=== PATIENT | male | born 1945 | race Caucasian/White ===

== ENCOUNTER 2016-12-31 16:01 | Emergency (ER) | payer MEDICARE ==
--- NOTE | 2016-12-31 16:27 | ER Document Report ---
ED Substance Abuse / Acc. OD - General Chief Complaint: ETOH Abuse Stated Complaint: POSSIBLE INTOXICATION Time Seen by Provider: 12/31/16 16:26 Notes: The patient is a 71-year-old male, past medical history diabetes, presents by EMS after he was drinking 7 rums and Cokes with 4 shots of rum in each of them. He was sitting on the side of the road and a bystander called 911. EMS arrived and his family was there, but he did not want to go home with his family and wanted to go the hospital. Initially, the patient was combative at by EMS, but he has calmed down. He said he did not hit his head denies any pain or other complaints at this time. TRAVEL OUTSIDE OF THE [place] IN LAST 30 DAYS: No - Related Data Allergies/Adverse Reactions: No Known Allergies Allergy (Verified 06/14/14 05:13) Past Medical History - General Information source: Patient - Social History Smoking Status: Current Every Day Smoker Frequency of alcohol use: binge Drug Abuse: None Family History: Reviewed & Not Pertinent - Past Medical History Cardiac Medical History: Reports: Hx Hypertension Pulmonary Medical History: Reports: Hx COPD Endocrine Medical History: Reports: Hx Diabetes Mellitus Type 2 - Patient reports rum and diet Coke is how he treats his diabetes Past Surgical History: Reports: Hx Abdominal Surgery, Hx Appendectomy, Hx Cardiac Catheterization - stents x2, Hx Cholecystectomy - Immunizations Hx Diphtheria, Pertussis, Tetanus Vaccination: Yes Review of Systems - Review of Systems Notes: REVIEW OF SYSTEMS: CONSTITUTIONAL: -fevers, -chills EENT: -eye pain, -difficulty swallowing, -nasal congestion CARDIOVASCULAR:-chest pain, -syncope. RESPIRATORY: -cough, -SOB GASTROINTESTINAL: -abdominal pain, -nausea, -vomiting, -diarrhea GENITOURINARY: -dysuria, -hematuria MUSCULOSKELETAL: -back pain, -neck pain SKIN: -rash or skin lesions. HEMATOLOGIC: -easy bruising or bleeding. LYMPHATIC: -swollen, enlarged glands. NEUROLOGICAL: -altered mental status or loss of consciousness, -headache, - neurologic symptoms PSYCHIATRIC: +heavy alcohol use, -anxiety, -depression. ALL OTHER SYSTEMS REVIEWED AND NEGATIVE. Physical Exam - Vital signs Vitals: Temp Pulse Resp BP 98.7 F 71 18 130/78 H 12/31/16 16:06 12/31/16 16:06 12/31/16 16:06 12/31/16 16:06 - Notes Notes: PHYSICAL EXAMINATION: GENERAL: Well-appearing, well-nourished and in no acute distress. Smells of ETOH. HEAD: Atraumatic, normocephalic. EYES: Pupils equal round and reactive to light, extraocular movements intact, sclera anicteric, conjunctiva are normal. ENT: nares patent, oropharynx clear without exudates. Moist mucous membranes. NECK: Normal range of motion, supple without lymphadenopathy LUNGS: Breath sounds clear to auscultation bilaterally and equal. No wheezes rales or rhonchi. HEART: Regular rate and rhythm without murmurs ABDOMEN: Soft, nontender, normoactive bowel sounds. No guarding, no rebound. No masses appreciated. EXTREMITIES: Normal range of motion, no pitting or edema. No cyanosis. NEUROLOGICAL: Cranial nerves grossly intact. Normal speech, normal gait. Normal sensory, motor, and reflex exams. PSYCH: Normal mood, normal affect. SKIN: Warm, Dry, normal turgor, no rashes or lesions noted. Course - Re-evaluation Re-evalutation: Patient is ambulating around the emergency room steadily. His friend is in the emergency room who is sober and will take patient home. No signs of head injuries and the patient said that he only drank alcohol and does not have any complaints. Will discharge home with follow-up at primary care physician. Offered patient alcohol detox, but he defers at this time. - Vital Signs Vital signs: Temp Pulse Resp BP Pulse Ox 97.2 F 63 16 133/71 H 95 12/31/16 18:24 12/31/16 18:24 12/31/16 18:24 12/31/16 18:24 12/31/16 18:24 Discharge - Discharge Clinical Impression: Alcohol intoxication Qualifiers: Complication of substance-induced condition: uncomplicated Qualified Code(s): F10.920 - Alcohol use, unspecified with intoxication, uncomplicated Condition: Stable Disposition: HOME, SELF-CARE Additional Instructions: ACUTE ALCOHOL INTOXICATION and ALCOHOL ABUSE: Your evaluation revealed very high levels of alcohol. You can from drinking a large amount of alcohol rapidly! Further, there's the risk of falls , traffic accidents, and fights. A high portion (about 50 percent) of the serious injuries seen in hospital emergency rooms are caused by alcohol. Alcohol overdosage is usually due to an underlying emotional or psychiatric problem. You may benefit from counselling. If "binge" drinking is an ongoing problem for you, or if you drink ANY AMOUNT of alcohol EVERY day, you most likely have a tendency to alcoholism. You should avoid alcohol totally. We can refer you for treatment. Persons with alcohol problems are often also prone to other addictions -- you should discuss any use of medications or drugs with the doctor. You should be watched at home for the next several hours by someone who has not been drinking. Get extra fluids for the next 24 hours. Call the doctor if there is repeated vomiting, increasing headache, decreasing level of alertness, or any other worsening. CHRONIC ALCOHOLISM and ALCOHOL ABUSE: Your evaluation reveals evidence of chronic alcoholism, an addiction to alcohol. The tendency to alcoholism may be inherited. Chronic use of alcohol weakens muscles, causes fatty deposits in the liver , damages the stomach, makes you more prone to infections, and can cause defects in unborn children. In the long run, brain atrophy and cirrhosis of the liver result. You are also at greater risk for certain types of cancer, such as cancer of the mouth, throat, stomach, and liver. Counselling services are available to help you. In-hospital treatment programs often help. Support groups such as Alcoholics Anonymous can be very useful in beating this addiction. Your physician can make a referral for you. As alcoholics often are prone to other addictions, you should discuss your use of any other medications with the doctor. FOR THE OBSERVER: Observe the patient for the next 24 hours and call or go to the hospital if any of the following are noted: prolonged or repeated vomiting, difficulty in arousing, convulsions (seizures or fits), fever, persistent cough, breathing that is too slow or too rapid, or confused or bizarre behavior. If a counselling visit has been arranged, make sure the patient attends. Call the physician or poison control if you have questions. FOLLOW-UP CARE: If you have been referred to a physician for follow-up care, call the physician s office for an appointment as you were instructed or within the next two days. If you experience worsening or a significant change in your symptoms, notify the physician immediately or return to the Emergency Department at any time for re-evaluation.
[2016-12-31 18:28] VITALS: BP 133/71
== END 2016-12-31 18:28 | disposition home or self-care (01) ==
LOC: ER 16:01
DX: F10.920 Alcohol use, unspecified with intoxication, uncomplicated (principal); E11.9 Type 2 diabetes mellitus without complications; J44.9 Chronic obstructive pulmonary disease, unspecified; F17.200 Nicotine dependence, unspecified, uncomplicated; Z98.61 Coronary angioplasty status
CPT/HCPCS: 99284

== ENCOUNTER 2017-10-06 21:41 | Emergency (ER) | payer MEDICARE ==
--- NOTE | 2017-10-06 22:20 | ER Document Report ---
ED General - General Chief Complaint: Fall Stated Complaint: FALL,ALTERED MENTAL STATUS Time Seen by Provider: 10/06/17 22:13 Notes: Patient is a 72-year-old known alcoholic is brought in by ambulance because of alcohol intoxication with fall. He obviously this had as he has a lot of abrasions and swelling to left side of his head. He also has some abrasions to the left hand. Patient denies any pain. He denies falling that he obviously did. He is currently intoxicated. Per speaking with the nurse stay a month said that the family said they were given a command however family is not yet arrived. History is therefore limited with the patient. He does admit that he drinks alcohol every day. TRAVEL OUTSIDE OF THE [place] IN LAST 30 DAYS: No - Related Data Allergies/Adverse Reactions: No Known Allergies Allergy (Verified 06/14/14 05:13) Past Medical History - Social History Smoking Status: Former Smoker Chew tobacco use (# tins/day): No Frequency of alcohol use: Heavy Drug Abuse: None Family History: Reviewed & Not Pertinent Patient has suicidal ideation: No Patient has homicidal ideation: No - Past Medical History Cardiac Medical History: Reports: Hx Hypertension Pulmonary Medical History: Reports: Hx COPD Endocrine Medical History: Reports: Hx Diabetes Mellitus Type 2 - Patient reports rum and diet Coke is how he treats his diabetes Renal/ Medical History: Denies: Hx Peritoneal Dialysis Past Surgical History: Reports: Hx Abdominal Surgery, Hx Appendectomy, Hx Cardiac Catheterization - stents x2, Hx Cholecystectomy - Immunizations Hx Diphtheria, Pertussis, Tetanus Vaccination: Yes Review of Systems - Review of Systems Notes: My Normal Review Basic REVIEW OF SYSTEMS: CONSTITUTIONAL : Denies fever, chills, or sweats. Denies recent illness. EENT: Denies eye, ear, throat, or mouth pain or symptoms. Denies nasal or sinus congestion. CARDIOVASCULAR: Denies chest pain. RESPIRATORY: Denies cough, cold, or chest congestion. Denies shortness of breath, difficulty breathing, or wheezing. GASTROINTESTINAL: Denies abdominal pain. Denies nausea, vomiting, or diarrhea. Denies constipation. Last BM: MUSCULOSKELETAL: Denies any pain in back or neck. SKIN: Abrasions to left hand. NEUROLOGICAL: Patient obviously intoxicated and does admit to drinking alcohol every day. Patient says he does not remember the fall. He denies headache. ALL OTHER SYSTEMS REVIEWED AND NEGATIVE. Physical Exam - Vital signs Vitals: Temp Pulse Resp BP Pulse Ox 97.6 F 95 18 126/96 H 100 10/06/17 21:41 10/06/17 21:41 10/06/17 21:41 10/06/17 21:41 10/06/17 21:41 - Notes Notes: General Appearance: Well nourished, alert, patient is somewhat cooperative. He does answer my questions. He continues to deny that there is anything wrong and continues to deny that he fell or could possibly injure given that there is obvious outward signs of abrasions to his face and head from fall., no acute distress, no obvious discomfort. Vitals: reviewed, See vital signs table. Head: no swelling or tenderness to the head Eyes: PERRL, EOMI, Conjuctiva clear Mouth: No decreasd moisture Throat: No tonsillar inflammation, No airway obstruction, No lymphadenopathy Neck: Supple, no neck tenderness, No step-offs or deformities. Back: No pain to palpation of the back. Lungs: No wheezing, No rales, No rhonci, No accessory muscle use, good air exchange bilaterally. Heart: Normal rate, Regular rythm, No murmur, no rub Abdomen: Normal BS, soft, No rigidity, No abdominal tenderness, No guarding, no rebound, no abdominal masses, no organomegaly Extremities: strength 5/5 in all extremities, good pulses in all extremities, no swelling or tenderness in the extremities, no edema. Skin: warm, dry, appropriate color, no rash Neuro: speech clear, oriented x 2, patient is able answer most questions appropriately. He is obviously intoxicated. He does have a hard time sitting up in bed on his own. He immediately starts to sway to the side when he goes to sit up out of bed. Does move all extremities on his own. Strength is equal in all 4 extremities.. Course - Re-evaluation Re-evalutation: 10/07/17 00:44 Patient's family never showed up. Patient continues to be very intoxicated and is trying to get up out of bed and walk. He is unsteady with his gait and obviously not appropriate to be allowed to make his own decisions as he still very intoxicated and unable to cooperate appropriately and is unable to walk with a steady gait. Nurse, Javier, try to call his family several times. Initially the phone number and ring but now the number appears to be cut off. I will therefore give him a dose of Ativan to both help sedate him and also to help reduce the risk of withdrawal. 10/07/17 06:32 On reevaluation patient looks very well. He is awake alert and answering questions. He has no slurring of his speech. He is able to walk. His gait is slightly staggered; however, the patient usually uses a cane when he walks and therefore this to be expected. Patient says he feels like he is back to his baseline has no further concerns. He does request to go home. Patient is awake and alert and oriented, ambulatory at his baseline, and able to answer all questions appropriately without slurring of speech. We will give patient a cab ride home. Have attempted to call his family many times throughout the night however they will not answer the phone. Initially the phone would bring over and over over again. The last few times a phone go straight to voicemail and the voicemail box has not been set up and therefore message cannot be left. Patient CT scan of the head was read as no obvious sign of intracranial abnormality or bleeding however there was some motion artifact and therefore if he had clinical symptoms persistent and concerning for head injury then repeat CT scan should be obtained. Currently the patient does not have any symptoms that would be of concerning of intracranial head injury as he is neurologically back to baseline and intact. I do not feel repeat CT scan is needed. We will give the patient close to follow-up instructions and return precautions. Dictation of this chart was performed using voice recognition software; therefore, there may be some unintended grammatical errors. 10/07/17 06:37 - Vital Signs Vital signs: Temp Pulse Resp BP Pulse Ox 97.6 F 95 18 151/95 H 99 10/06/17 21:41 10/06/17 21:41 10/06/17 21:41 10/07/17 06:01 10/07/17 06:01 Discharge - Discharge Clinical Impression: Alcohol intoxication Qualifiers: Complication of substance-induced condition: with delirium Qualified Code(s): F10.921 - Alcohol use, unspecified with intoxication delirium Fall Qualifiers: Encounter type: initial encounter Qualified Code(s): W19.XXXA - Unspecified fall, initial encounter Contusion Qualifiers: Encounter type: initial encounter Contusion area: head Contusion of head detail : scalp Qualified Code(s): S00.03XA - Contusion of scalp, initial encounter Condition: Good Disposition: HOME, SELF-CARE Additional Instructions: Please follow up with your doctor in 2-3 days for reevaluation. Please return to the ER immediately if you develop severe headache, vomiting, or feel unwell. Please do not drink large amounts of alcohol at a time. Please try to continuously cut back on your alcohol intake. Please follow up with alcohol resources such as [facility].
--- NOTE | 2017-10-06 22:59 | RADIOLOGY REPORT (SQ) ---
EXAM DESCRIPTION: CT HEAD WITHOUT COMPLETED DATE/TIME: 10/06/2017 10:50 pm REASON FOR STUDY: trauma COMPARISON: 06/14/2014 TECHNIQUE: Axial images acquired through the brain without intravenous contrast. Images reviewed wi th bone, brain and subdural windows. Images stored on PACS. All CT scanners at this facility use dose modulation, iterative reconstruction, and/or weight based d osing when appropriate to reduce radiation dose to as low as reasonably achievable (ALARA). [facility]: Dose Right [facility]: CareDose [facility]: Dose Right [facility]: Teradose 4D [facility]: [employer] RADIATION DOSE: CT Rad equipment meets quality standard of care and radiation dose reduction techniq ues were employed. CTDIvol: 64.6 mGy. DLP: 1267 mGy-cm.mGy. LIMITATIONS: The study is severely limited due to patient motion. FINDINGS: VENTRICLES: Prominent. CEREBRUM: No masses. No hemorrhage. No midline shift. Areas of low density in the white matter mos t likely due to chronic micro-vascular ischemic change. 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 No evidence for acute infarction. CEREBELLUM: No masses. No hemorrhage. No alteration of density. No evidence for acute infarction. EXTRAAXIAL SPACES: Age-related involutional change. No fluid collections. No masses. ORBITS AND GLOBE: No intra- or extraconal masses. Normal contour of globe without masses. CALVARIUM: No fracture. PARANASAL SINUSES: No fluid or mucosal thickening. SOFT TISSUES: No mass or hematoma. OTHER: No other significant finding. IMPRESSION: NO DEFINITE ACUTE INTRACRANIAL PROCESS HOWEVER STUDY IS SEVERELY LIMITED DUE TO PATIENT MOTION. WOULD RECOMMEND REPEATING STUDY IF PERSISTENT CONCERN FOR PATHOLOGY. EVIDENCE OF ACUTE STROKE: NO. TECHNICAL DOCUMENTATION: JOB ID: [id number] Quality ID # [id number]: Final reports with documentation of one or more dose reduction techniques (e.g., Au tomated exposure control, adjustment of the mA and/or kV according to patient size, use of iterative reconstruction technique) 2010 [employer]- All Rights Reserved Reading location - IP/workstation name: [email or web address]
--- NOTE | 2017-10-06 23:00 | RADIOLOGY REPORT (SQ) ---
EXAM DESCRIPTION: CT CERVICAL SPINE WITHOUT COMPLETED DATE/TIME: 10/06/2017 10:50 pm REASON FOR STUDY: trauma COMPARISON: 06/14/2014 TECHNIQUE: Axial images acquired through the cervical spine without intravenous contrast. Images re viewed with lung, soft tissue and bone windows. Reconstructed coronal and sagittal MPR images review ed. Images stored on PACS. All CT scanners at this facility use dose modulation, iterative reconstruction, and/or weight based d osing when appropriate to reduce radiation dose to as low as reasonably achievable (ALARA). [facility]: Dose Right [facility]: CareDose [facility]: Dose Right [facility]: Teradose 4D [facility]: [employer] RADIATION DOSE: CT Rad equipment meets quality standard of care and radiation dose reduction techniq ues were employed. CTDIvol: 19.5 mGy. DLP: 961 mGy-cm. mGy. LIMITATIONS: None. FINDINGS: ALIGNMENT: Anatomic. MINERALIZATION: Normal. VERTEBRAL BODIES: No fractures or dislocation. DISCS: Multilevel disc space narrowing with osteophytes. FACETS, LATERAL MASSES, POSTERIOR ELEMENTS: Facet arthropathy. No fractures. No dislocation. No ac [facility] findings. HARDWARE: None in the spine. VISUALIZED RIBS: No fractures. LUNG APICES AND SOFT TISSUES: No significant or acute findings. OTHER: No other significant finding. IMPRESSION: NO ACUTE CERVICAL SPINE PROCESS. NO SIGNIFICANT CHANGE FROM PRIOR STUDY. TECHNICAL DOCUMENTATION: JOB ID: [id number] Quality ID # [id number]: Final reports with documentation of one or more dose reduction techniques (e.g., Au tomated exposure control, adjustment of the mA and/or kV according to patient size, use of iterative reconstruction technique) 2010 [employer]- All Rights Reserved Reading location - IP/workstation name: [email or web address]
[2017-10-07] MEDS ORDERED: LORAZEPAM INJ 2 MG/1 ML VIAL IM ONE (00:43)
[2017-10-07 06:13] VITALS: BP 151/95
== END 2017-10-07 06:53 | disposition home or self-care (01) ==
LOC: ER 21:41
DX: S00.91XA Abrasion of unspecified part of head, initial encounter (principal); R22.0 Localized swelling, mass and lump, head; R41.82 Altered mental status, unspecified; F10.921 Alcohol use, unspecified with intoxication delirium; Z87.891 Personal history of nicotine dependence; W19.XXXA Unspecified fall, initial encounter
CPT/HCPCS: 99285; 96372; 70450; 72125; J2060